=== PATIENT | male | born 1960 | race Caucasian/White ===

== ENCOUNTER 2022-04-13 06:12 | Inpatient (IN) | payer MEDICAID ==
[~2022-04-13] VITALS: Ht 177.8 cm; Wt 61.2 kg
--- NOTE | 2022-04-13 06:12 | NUR ---
Lac noted to the left eye, left hand, and back of the head. Bleeding controlled and gauze applied to the sites.
--- NOTE | 2022-04-13 06:12 | NUR ---
Patient to ER bed 07 for evaluation. Side rails up.
--- NOTE | 2022-04-13 06:12 | NUR ---
Dr. Delgadillo at bedside with patient for evaluation.
[2022-04-13] MEDS ORDERED: LORazepam 2 MG/ML VIAL ONE (06:18)
--- NOTE | 2022-04-13 06:18 | NUR ---
DR LEARY GAVE VERBAL ORDER FOR 1 ML OF LORAZEPAM/ADM IVP
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
[2022-04-13] MEDS ORDERED: BACITRACIN 1 GM OINT TP ONE (06:45)
[2022-04-13] MEDS ORDERED: LIDOCAINE 1% 10 MG/ML, 20 ML MDV INJ ONE (06:45)
[2022-04-13] MEDS ORDERED: DIPH-TET-PERTUS Vaccine 0.5 ML VIAL (ADACEL) I.M. ONE (06:45)
[2022-04-13 06:57] LABS: BASOPHILS # (AUTO) 0.1 K/uL (0.0-0.2); BASOPHILS % (AUTO) 0.6 % (0.0-2.0); HEMATOCRIT 38.6 % (36-54); HEMOGLOBIN 13.3 g/dL (14.0-18.0); LYMPHOCYTES # (AUTO) 0.6 K/uL (1.0-5.5); LYMPHOCYTES % (AUTO) 4.8 % (20.5-51.5); MEAN CORPUSCULAR HEMOGLOBIN 33 pg (27-31); MEAN CORPUSCULAR HGB CONC 34 % (32-36); MEAN CORPUSCULAR VOLUME 96 fL (79.0-98.0); MONOCYTES # (AUTO) 0.6 K/uL (0.0-1.0); MONOCYTES % (AUTO) 4.8 % (1.7-9.3); NEUTROPHILS # (AUTO) 10.8 K/uL (1.8-7.7); NEUTROPHILS % (AUTO) 89.8 % (40.0-70.0); PLATELET COUNT (AUTO) 131 K/uL (130-430); RED BLOOD CELL COUNT(AUTO) 4.02 MIL/uL (4.2-6.2); RED CELL DISTRIBUTION WIDTH 14.2 % (9.0-15.0); WHITE BLOOD COUNT (AUTO) 12.1 K/uL (4.8-10.8)
--- NOTE | 2022-04-13 07:10 | NUR ---
REPORT RECEIVED FROM SMOOTH RN FOR CONTINUING CARE
[2022-04-13] MEDS ORDERED: LORazepam 2 MG/ML VIAL IVP ONE (07:15)
[2022-04-13 07:24] LABS: ANION GAP 14 (5-15); CALCIUM 8.3 mg/dL (8.4-11.0); CHLORIDE 100 mmol/L (98-107); CREATININE 0.67 mg/dL (0.55-1.30); GLUCOSE 111 mg/dL (70-99); SODIUM SERUM 142 mmol/L (136-145); UREA NITROGEN, BLOOD 13 mg/dL (8-21)
[2022-04-13 07:28] LABS: ALANINE AMINOTRANSFERASE 43 U/L (12-78); ALBUMIN 3.5 g/dL (3.4-4.8); ALCOHOL, BLOOD 172 mg/dL (<10); AMYLASE 191 U/L (0-100); ASPARTATE AMINOTRANSFERASE 128 U/L (10-37); LIPASE 92 U/L (73-393); TOTAL BILIRUBIN 0.5 mg/dL (0.0-1.0)
--- NOTE | 2022-04-13 07:31 | NUR ---
SPOKE WITH DISPATCH AT [facility] AND INFORMATION GIVEN, THEY WILL SEND A DEPUTY TO HOSPITAL FOR PT.
[2022-04-13 07:59] LABS: GFR AFRICAN AMERICAN 154 mL/min (>90); POTASSIUM 2.6 mmol/L (3.5-5.1)
--- NOTE | 2022-04-13 08:10 | NUR ---
OFFICER KATHE HERE TO SPEAK WITH PTOdalys
--- NOTE | 2022-04-13 08:27 | NUR ---
COVID SWAB DONE AND SENT TO LAB
[2022-04-13] MEDS ORDERED: POTASSIUM CHLORIDE 20 MEQ/PKT PACKET PO ONE ×2 (08:45→14:15)
--- NOTE | 2022-04-13 09:08 | NUR ---
MEAGAN MARISCAL HERE TO SEE PT.
--- NOTE | 2022-04-13 09:52 | NUR ---
Admit bed requested Patient will be admitted to care of . Admitted to tele unit. Diagnosis Alcohol Intoxication Inpatient (Yes or No) Yes Observation (Yes or No) No Orientation concerns or request close to nursing station (Yes or No) NO Covid Status No On vent or bipap No Isolation requirements No Needs a sitter No From Home (Yes or if No enter name of facility) No- Patient is homeless Requires Dialysis (Yes or No) No Med Rec Completed (Yes of No) Yes
[2022-04-13] MEDS ORDERED: FOLIC ACID 1 MG, THIAMINE HCL 100 MG, MAGNESIUM SULFATE 1 GM, MVI 10 ML in NACL 0.9% 1,... IV ONE (10:00)
--- NOTE | 2022-04-13 10:28 | NUR ---
Medication reconciliation completed with information provided by patient. Any prior medication reconciliation on file was reviewed and corrected.
[2022-04-13] MEDS ORDERED: FOLIC ACID 1 MG, MVI 10 ML in NACL 0.9% 1,000 ML IV ONE (11:00)
[2022-04-13] MEDS ORDERED: THIAMINE HCL 100 MG, MAGNESIUM SULFATE 1 GM in NS 100 ML IV ONE (11:00)
--- NOTE | 2022-04-13 12:21 | NUR ---
Patient will be admitted to care of Dr. Watts. Admitted to tele unit. Will go to room 102B. Belongings list completed. Complete and up to date summary report printed. SBAR report to be given at bedside with opportunity for questions.
[2022-04-13 12:30] VITALS: BP_SYST 144
--- NOTE | 2022-04-13 12:30 | NUR ---
ADMISSION NOTE Received patient from ER via raya, received report from CHARTERED ACCOUNTANT. Patient admitted with diagnosis of left orbital floor fracture, ETOH abuse, hypokaleia. Patient oriented to hospital routine, call light, toileting and safety-patient verbalized understanding.
[2022-04-13 12:33] LABS: ACETONE, SERUM TRACE (NEGATIVE)
[2022-04-13 16:00] VITALS: BP_SYST 136
--- NOTE | 2022-04-13 17:40 | NUR ---
Note Assisted patient with hygiene needs with the help of Helen AVINA. Call light within reach. Safety and fall precautions in place. All needs met.
--- NOTE | 2022-04-13 18:11 | NUR ---
Note Patient is laying in bed with eyes closed. Family at bedside. Call light within reach. Safety and fall precautions in place. All needs met.
[2022-04-13] MEDS ORDERED: chlordiazePOXIDE HCL 25 MG CAPSULE PO ONE (18:30)
--- NOTE | 2022-04-13 19:00 | NUR ---
Closing Note Patient laying in bed with eyes closed. No apparent distress noted. Call light within reach. Safety and fall precautions in place. All needs met. Endorsed care to shift superintendent RN Deb.
[2022-04-13] MEDS: POTASSIUM CHLORIDE 20 MEQ/PKT PACKET PO SCH ×2 (19:07→21:22)
--- NOTE | 2022-04-13 19:30 | NUR ---
OPENING NOTES: Patient received from AM shift. Patient is AA&Ox4 able to make needs known, denies any pain or discomfort at this time. Chest rise is even and unlabored on RA. Patient has some visual impairment due to swelling of the eyelids due to trauma. BS active patient is ambulatory and continent of B&B. Safety measures are in place, patient has call light within reach. Will resume care and continue to monitor throughout the shift.
[2022-04-13 20:00] VITALS: BP_SYST 136
[2022-04-13] MEDS: chlordiazePOXIDE HCL 25 MG CAPSULE PO SCH (21:24)
[2022-04-13] MEDS: LORazepam 2 MG/ML VIAL IVP PRN (21:26)
--- NOTE | 2022-04-14 00:30 | NUR ---
PATIENT RESTING: Patient resting quietly. No acute distress noted. Vital signs within normal range. Patient received all scheduled evening medications and was administered anxiety medication as prescribed. Call light is within reach will continue to monitor.
[2022-04-14 00:39] VITALS: BP_SYST 123
[2022-04-14 05:53] LABS: BASOPHILS # (AUTO) 0.1 K/uL (0.0-0.2); EOSINOPHILS % (AUTO) 0.5 % (0.0-4.0); HEMATOCRIT 36.5 % (36-54); HEMOGLOBIN 12.6 g/dL (14.0-18.0); LYMPHOCYTES # (AUTO) 1.2 K/uL (1.0-5.5); LYMPHOCYTES % (AUTO) 18.4 % (20.5-51.5); MEAN CORPUSCULAR HEMOGLOBIN 33 pg (27-31); MEAN CORPUSCULAR HGB CONC 35 % (32-36); MEAN CORPUSCULAR VOLUME 96 fL (79.0-98.0); MONOCYTES % (AUTO) 14.4 % (1.7-9.3); NEUTROPHILS # (AUTO) 4.3 K/uL (1.8-7.7); NEUTROPHILS % (AUTO) 65.7 % (40.0-70.0); PLATELET COUNT (AUTO) 133 K/uL (130-430); RED BLOOD CELL COUNT(AUTO) 3.82 MIL/uL (4.2-6.2); RED CELL DISTRIBUTION WIDTH 13.6 % (9.0-15.0); WHITE BLOOD COUNT (AUTO) 6.6 K/uL (4.8-10.8)
--- NOTE | 2022-04-14 06:08 | NUR ---
I PAGED DR. DUARTE I SPOKE TO TRICE
[2022-04-14] MEDS: LORazepam 2 MG/ML VIAL IVP PRN (06:13)
[2022-04-14 06:25] LABS: ALBUMIN 3.4 g/dL (3.4-4.8); CALCIUM 7.8 mg/dL (8.4-11.0); CREATININE 0.54 mg/dL (0.55-1.30); TOTAL BILIRUBIN 1.8 mg/dL (0.0-1.0)
--- NOTE | 2022-04-14 07:20 | NUR ---
Opening Notes Patient is sitting up in bed awake. A/O x2. Patient is confused, he believes he is at home. Re oriented patient to place and time. Vitals as charted. Call light within reach. Safety and fall precautions in place. All needs met.
--- NOTE | 2022-04-14 07:23 | NUR ---
CLOSING NOTES: Patient is in bed resting. Patient had 1 episode of loose stool and had some accidental incontinence on they way to restroom. Patient also expressed increased anxiety and craving to smoke cigarettes, MD notified and and order was obtain for nicotine 21 daily patch for smoking cessation. Patient is able to verbalize needs and PRN Lorazepam was administered as ordered to help with the anxiety, denies any other pain or distress at this time. All current shift needs have been met at this time, safety protocols are in place. Will differ further care to AM shift for continuity of care.
[2022-04-14 08:42] LABS: POTASSIUM 2.9 mmol/L (3.5-5.1)
--- NOTE | 2022-04-14 08:51 | NUR ---
Critical Lab Critical Lab received from Leanne philip 2.9. Reported to Dr. Watts [id number].
[2022-04-14] MEDS: chlordiazePOXIDE HCL 25 MG CAPSULE PO SCH ×4 (09:52→21:25)
[2022-04-14] MEDS: POTASSIUM CHLORIDE 20 MEQ/PKT PACKET PO SCH ×4 (09:53→21:25)
[2022-04-14] MEDS: NICOTINE 21 MG/24 HR PATCH.TD24 TD SCH (09:53)
[2022-04-14] MEDS: FOLIC ACID 1 MG TABLET PO SCH (09:53)
[2022-04-14] MEDS: THIAMINE HCL 100 MG TABLET PO SCH (09:53)
[2022-04-14] MEDS ORDERED: POTASSIUM CHLORIDE 20 MEQ TAB.PRT.SR PO ONE (10:30)
[2022-04-14 12:34] VITALS: BP_SYST 147
--- NOTE | 2022-04-14 13:00 | NUR ---
NEW IV INSERTION Patient ripped off IV. Inserted new IV LFA 20g. Flushes well, blood return present, IV patent.
[2022-04-14 16:48] VITALS: BP_SYST 140
--- NOTE | 2022-04-14 17:09 | NUR ---
P.T. NOTES P.T. EVAL COMPLETED; REFER TO EVAL FOR DETAILS.
--- NOTE | 2022-04-14 18:57 | NUR ---
Closing Note Patient laying in bed. A/O x2. Patient becomes confused at times, reoriented to place and time. Call light within reach. Safety and fall precautions in place. All needs met. Will endorse care to hourly shift RN.
--- NOTE | 2022-04-14 19:40 | NUR ---
PM ASSESSMENT; -Pt is a/ox2, episode of confusion noted. Pt is laying in bed comfortably. Son is at bedside. IV site left f/a patent no s/s any infiltration drsg cdi. Discussed poc,all safety measures, not to get out of bed, to use call light whenever needs assistance or experiencing any distress, pt and son verbalized understanding. Pt is able to use call light for assistance. All safety measures in place. Bed alarmed, side rails x3, call light w/in reach. Cont to monitor pt. Addendum: 04/14/22 at 2042 by [employer] special education para professional LATE ENTRY-ADDITIONAL NOTES-- SUTURE DRY AND WELL APPROXIMATE,NO DRAINAGE OF LEFT HAND, NIK EYES SWOLLEN AND ECCHYMOSIS, LEFT FACIAL AROUND TEMPORAL SITE DRY SCAB, AND LEFT F/A SKIN TEAR NOTED.
--- NOTE | 2022-04-14 22:00 | NUR ---
ROUNDS; -Pt is incontinent of loose green stool, provided perineal care and cleaned pt and changed linen,gown, sheet. Now, pt is cleaned and dry. Reinstructed and oriented pt to use call light whenever needs assistance, pt verbalized understanding. Fall precaution in place. All safety measures in place. Bed alarmed, side rails x3, call light w/in reach. Cont to monitor pt.
[2022-04-15 00:31] VITALS: BP_SYST 110
--- NOTE | 2022-04-15 00:31 | NUR ---
ROUNDS; -Pt is asleep. NO s/s any pain,sob,or any acute distress noted. Pt's condition stable. Fall precaution in place. All safety measures in place. Bed alarmed, side rails x3, call light w/in reach. Cont to monitor pt.
--- NOTE | 2022-04-15 02:00 | NUR ---
ROUNDS; -Pt is asleep. NO s/s any pain,sob,or any acute distress noted. Fall precaution in place. All safety measures in place. Bed alarmed, side rails x3, call light w/in reach. Cont to monitor pt.
--- NOTE | 2022-04-15 03:50 | NUR ---
ROUNDS; -Pt is still asleep. NO s/s any pain,sob,or any acute distress noted. Fall precaution in place. All safety measures in place. Bed alarmed, side rails x3, call light w/in reach. Cont to monitor pt.
--- NOTE | 2022-04-15 05:46 | NUR ---
ROUNDS; -Pt is resting in bed. Pt is cleaned and dry on perineal area. Gave warm blanket bc pt feels cold. Fall precaution in place. All safety measures in place. Bed alarmed, side rails x3, call light w/in reach. Cont to monitor pt.
[2022-04-15 06:22] LABS: BASOPHILS # (AUTO) 0.1 K/uL (0.0-0.2); BASOPHILS % (AUTO) 1.1 % (0.0-2.0); EOSINOPHILS # (AUTO) 0.1 K/uL (0.0-0.4); EOSINOPHILS % (AUTO) 2.1 % (0.0-4.0); HEMATOCRIT 35.5 % (36-54); HEMOGLOBIN 12.3 g/dL (14.0-18.0); LYMPHOCYTES # (AUTO) 1.8 K/uL (1.0-5.5); LYMPHOCYTES % (AUTO) 28.6 % (20.5-51.5); MEAN CORPUSCULAR HEMOGLOBIN 34 pg (27-31); MEAN CORPUSCULAR HGB CONC 35 % (32-36); MEAN CORPUSCULAR VOLUME 96 fL (79.0-98.0); MONOCYTES # (AUTO) 0.8 K/uL (0.0-1.0); NEUTROPHILS # (AUTO) 3.5 K/uL (1.8-7.7); NEUTROPHILS % (AUTO) 55.2 % (40.0-70.0); PLATELET COUNT (AUTO) 149 K/uL (130-430); RED BLOOD CELL COUNT(AUTO) 3.69 MIL/uL (4.2-6.2); RED CELL DISTRIBUTION WIDTH 13.5 % (9.0-15.0); WHITE BLOOD COUNT (AUTO) 6.4 K/uL (4.8-10.8)
[2022-04-15 06:31] LABS: ALBUMIN 3.2 g/dL (3.4-4.8); CALCIUM 7.9 mg/dL (8.4-11.0); CREATININE 0.62 mg/dL (0.55-1.30); POTASSIUM 3.6 mmol/L (3.5-5.1); TOTAL BILIRUBIN 1.8 mg/dL (0.0-1.0)
--- NOTE | 2022-04-15 06:31 | NUR ---
CLOSING NOTES; -Pt is laying in bed comfortably. No s/s any acute distress noted. IV site left f/a patent no s/s any infiltration drsg cdi. All safety measures in place. Bed alarmed, side rails x3, call light w/in reach. Will endorse to next nurse to cont care.
--- NOTE | 2022-04-15 07:30 | NUR ---
RN OPENING NOTE REPORT WAS ENDORSED BY NIGHT NURSE. PATIENT IS AWAKE AND ALERT SITTING UP IN BED EATING HIS BREAKFAST. PATIENT EDUCATED PEST CONTROL APPLICATOR LIGHT FOR ASSISTANCE. CALL LIGHT IS WITH HIM. PATIENT HAS NO COMPLAINTS AT THIS TIME.
[2022-04-15 08:00] VITALS: BP_SYST 109
[2022-04-15] MEDS: chlordiazePOXIDE HCL 25 MG CAPSULE PO SCH ×4 (08:22→21:19)
[2022-04-15] MEDS: THIAMINE HCL 100 MG TABLET PO SCH (08:22)
[2022-04-15] MEDS: FOLIC ACID 1 MG TABLET PO SCH (08:23)
[2022-04-15] MEDS: NICOTINE 21 MG/24 HR PATCH.TD24 TD SCH (08:23)
[2022-04-15] MEDS: POTASSIUM CHLORIDE 20 MEQ/PKT PACKET PO SCH ×2 (08:23→21:19)
--- NOTE | 2022-04-15 08:24 | NUR ---
medication patients scheduled medication given per order. patient is awake and alert sitting up in bed. no complaints at this time. educated stereo equipment salesperson light for assistance. no other needs at this time.
--- NOTE | 2022-04-15 10:30 | NUR ---
RN roundfiliberto patient is awake and alert got out of his bed, and walked to bathroom bed alarm did go off, COIL FORMER answered alarm helped him to bathroom and back to bed, patients gait is weak.educated patient to use call light for assistance. call light is with him. no other needs at this time.
[2022-04-15 12:00] VITALS: BP_SYST 143
--- NOTE | 2022-04-15 13:07 | NUR ---
RN ROUNDING PATIENT IS SITTING IN BED, EATING HIS LUNCH, NO COMPLAINTS AT THIS TIME. NO SIGNS OF ANY DISTRESS, BED ALARM IS ON, EDUCATED TO NOT GET OUT OF BED TO CALL US FIRST CALL LIGHT IS WITH HIM.
--- NOTE | 2022-04-15 14:30 | NUR ---
Wound Evaluation: Late note for 04/15/2022 at 1430. Wound Consult ordered for Low Jermaine Score. Patient evaluated for a low Jermaine score of 15. Patient was awake, alert, confused, and received in a Boo Bed with an Isoflex CRISTEL mattress. Patient needs assist to turn in bed. Skin assessment: 1. Left lateral wrist: Laceration, present on admission. Laceration site is approximated with sutures. No odor, no drainage. Laceration measures 3.6 cm x 3.5 cm. Recommend: Cover site with foam dressing for protection. Change dressing daily, and as needed for dressing soiling or dislodgment. 2. Left lateral forearm: Skin tear, present on admission. Skin tear has 85% pink tissue, 15% yellow tissue. No odor, scant purulent drainage. Periwound intact. Skin tear measures 1.5 cm x 1.4 cm. Recommend: Cleanse skin tear with normal saline. Apply Sureprep to perimeter of skin tear. Apply hydrogel to skin tear. Cover with nonadhesive foam dressing. Wrap with Shaheen wrap. Perform site care daily, and as needed for dressing soiling or dislodgment. Recommend encourage and assist patient as needed with repositioning every 2 hours with pillow support. Elevate, off-load and float bilateral heels with pillows. Offload pressure areas with pillows for pressure re-distribution. Perform skin care and monitor skin integrity Q shift. Use moisture barrier cream on moisture susceptible areas QID and PRN for soiling. Place patient on a low air-loss mattress.
--- NOTE | 2022-04-15 15:30 | NUR ---
wound care done per order. patient is awake and alert sitting in bed wound care was done as ordered by wound care nurse. patient has call light with him educated to use call light for assistance.
--- NOTE | 2022-04-15 15:37 | NUR ---
Discharge Planning: DCP faxed pt referral to [facility]#[phone], AYAN to follow up Addendum: 04/15/22 at 1608 by Brenna PATEL AYAN was made aware [facility] does not manage patient. DCP faxed to Peter Leary#[phone] [facility] to follow up
--- NOTE | 2022-04-15 15:42 | NUR ---
CM: Per Clare/Brie /Bradley MG: the pt insurance is registered with [facility] and is out of [facility]. Advised CM/DCP to contact the main insurance for authorization need.
[2022-04-15 16:20] VITALS: BP_SYST 102
--- NOTE | 2022-04-15 18:49 | NUR ---
RN CLOSING NOTE PATIENT IS EATING IN BED SITTING IN BED. FAMILY IS AT BED SIDE. CALL LIGHT IS WITH HIM EDUCATED TO USE FOR ASSISTANCE. PATIENT SHOWS NO SIGNS OF ANY DISTRESS, BREATHING IS EQUAL AND NON LABORED.
--- NOTE | 2022-04-15 19:30 | NUR ---
RECEIVED REPORT ON PT FROM OFFGOING RN, ASSUMED CARE AND STARTED ASSESSMENT.
[2022-04-16 00:41] VITALS: BP_SYST 121
--- NOTE | 2022-04-16 07:44 | NUR ---
REPORT GIVEN TO BERNADETTE HAYES, AND CARE WAS TURNED OVER TO HER.
[2022-04-16 08:00] VITALS: BP_SYST 107
--- NOTE | 2022-04-16 08:00 | NUR ---
OPENING NOTES: PATIENT EATING BREAKFAST. BREATHING EVEN AND NON LABORED TO RA. DENIES ANY DISCOMFORT AT THIS TIME. FALL AND SAFETY MEASURES REINFORCED. CALL LIGHT WITHIN REACH.
[2022-04-16] MEDS: NICOTINE 21 MG/24 HR PATCH.TD24 TD SCH (09:17)
[2022-04-16] MEDS: THIAMINE HCL 100 MG TABLET PO SCH (09:17)
[2022-04-16] MEDS: POTASSIUM CHLORIDE 20 MEQ/PKT PACKET PO SCH ×2 (09:17→21:24)
[2022-04-16] MEDS: FOLIC ACID 1 MG TABLET PO SCH (09:17)
[2022-04-16] MEDS: chlordiazePOXIDE HCL 25 MG CAPSULE PO SCH ×4 (09:18→21:23)
[2022-04-16 12:00] VITALS: BP_SYST 118
--- NOTE | 2022-04-16 12:00 | NUR ---
Note: Patient resting in bed, ambulated with PT, ambulatory with BRP, safety precaution observed, call light within reach. Will continue to monitor throughout shift.
[2022-04-16 17:00] VITALS: BP_SYST 110
--- NOTE | 2022-04-16 18:49 | NUR ---
CLOSING NOTES; patient alert, oriented, verbally responsive and able to make needs known. Patient needs minimum assist with ambulation. Safety precaution observed, bed alarm on, side rails up for safety, call light within reach. IV patent, kept clean and dry, able to reposition self, all needs met throughout shift. Will continue to monitor until material handler 2nd shift RN.
[2022-04-16 20:00] VITALS: BP_SYST 91
[2022-04-17] VITALS: BP_SYST 104
[2022-04-17 04:00] VITALS: BP_SYST 105
--- NOTE | 2022-04-17 07:30 | NUR ---
OPENING NOTES: Received patient in bed, alert, oriented x 4, verbally responsive and able to make his needs known. Safety precaution observed, bed alarm on, side rails up, call light within reach, IV patent. Will continue to monitor.
[2022-04-17 07:50] LABS: BASOPHILS % (AUTO) 0.5 % (0.0-2.0); EOSINOPHILS # (AUTO) 0.2 K/uL (0.0-0.4); EOSINOPHILS % (AUTO) 2.5 % (0.0-4.0); HEMATOCRIT 31.8 % (36-54); HEMOGLOBIN 10.9 g/dL (14.0-18.0); LYMPHOCYTES # (AUTO) 1.6 K/uL (1.0-5.5); LYMPHOCYTES % (AUTO) 17.8 % (20.5-51.5); MEAN CORPUSCULAR HEMOGLOBIN 33 pg (27-31); MEAN CORPUSCULAR HGB CONC 34 % (32-36); MEAN CORPUSCULAR VOLUME 97 fL (79.0-98.0); MONOCYTES # (AUTO) 0.9 K/uL (0.0-1.0); MONOCYTES % (AUTO) 9.9 % (1.7-9.3); NEUTROPHILS # (AUTO) 6.1 K/uL (1.8-7.7); NEUTROPHILS % (AUTO) 69.3 % (40.0-70.0); PLATELET COUNT (AUTO) 176 K/uL (130-430); RED BLOOD CELL COUNT(AUTO) 3.28 MIL/uL (4.2-6.2); RED CELL DISTRIBUTION WIDTH 13.3 % (9.0-15.0); WHITE BLOOD COUNT (AUTO) 8.8 K/uL (4.8-10.8)
[2022-04-17 08:00] VITALS: BP_SYST 100
[2022-04-17 08:04] LABS: ALBUMIN 2.9 g/dL (3.4-4.8); CALCIUM 8.1 mg/dL (8.4-11.0); CREATININE 0.66 mg/dL (0.55-1.30); POTASSIUM 3.8 mmol/L (3.5-5.1); TOTAL BILIRUBIN 0.8 mg/dL (0.0-1.0)
[2022-04-17] MEDS: POTASSIUM CHLORIDE 20 MEQ/PKT PACKET PO SCH ×2 (08:33→21:13)
[2022-04-17] MEDS: NICOTINE 21 MG/24 HR PATCH.TD24 TD SCH (08:33)
[2022-04-17] MEDS: chlordiazePOXIDE HCL 25 MG CAPSULE PO SCH ×2 (08:33→21:16)
[2022-04-17] MEDS: FOLIC ACID 1 MG TABLET PO SCH (08:33)
[2022-04-17] MEDS: THIAMINE HCL 100 MG TABLET PO SCH (08:33)
[2022-04-17 11:46] VITALS: BP_SYST 99
[2022-04-17] MEDS ORDERED: MAGNESIUM SULFATE 50 ML IV ONE (12:15)
--- NOTE | 2022-04-17 14:00 | NUR ---
Notes: Provided incontinence care, kept patient clean and dry, safety precaution observed, bed alarm on, side rails up for safety, call light within reach.
[2022-04-17 16:00] VITALS: BP_SYST 102
--- NOTE | 2022-04-17 18:32 | NUR ---
CLOSING NOTES: Patient alert, oriented, verbally responsive. Patient needs minimal assist with transfer and ambulation, safety precaution observed, side rails up, bed alarm on, call light within reach. Patient kept clean and dry, repositioned for comfort. IV patent, no s/s of acute distress noted, needs met throughout shift, will continue to monitor until hooker off RN.
--- NOTE | 2022-04-17 19:40 | NUR ---
INITIAL NOTE AT INITIAL ASSESSMENT, PATIENT IS RESTING IN BED, STABLE, NO SIGNS OF RESPIRATORY DISTRESS. PATIENT VERBALIZES NO PAIN. PLAN OF CARE FOR THE EVENING COMMUNICATED WITH THE PATIENT. CALL LIGHT TEACH BACK IS SUCCESSFUL. BED IS LOCKED, ALARMED, AND AT THE LOWEST LEVEL. FALL AND SAFETY PRECAUTIONS WILL BE TAKEN THROUGHOUT THE NIGHT.
[2022-04-17] MEDS: MAGNESIUM OXIDE 400 MG TABLET PO SCH (21:16)
[2022-04-18] VITALS: BP_SYST 104
--- NOTE | 2022-04-18 06:45 | NUR ---
CLOSING NOTE PATIENT SLEPT WELL THROUGHOUT THE NIGHT, HE HAS MORE STRENGTH NOW AND IS WALKING AROUND WITHOUT ASSISTANCE NEEDED. AT THIS TIME HE IS RESTING IN BED, STABLE. SHE REPORTED NO SHORTNESS OF BREATH OR PAIN DURING THE NIGHT. WILL CONTINUE TO MONITOR UNTIL SHIFT REPORT IS GIVEN AT BEDSIDE TO AM NURSE.
[2022-04-18 08:00] VITALS: BP_SYST 113
--- NOTE | 2022-04-18 08:00 | NUR ---
INITIAL NOTES PATIENT IN BED, RESTING. DOES NOT COMPLAIN OF PAIN. NO DISTRESS NOTED. PATIENT IS AOX4. VITAL SIGNS OBTAINED, WITHIN NORMAL RANGE . SPO2 IS AT 98% ON ROOM AIR. NO S/S OF RESPIRATORY DISTRESS. DENIES ANY SOB. BREAKFAST ON TABLE, PATIENT BEGINNING TO EAT. SAFETY PRECAUTIONS IN PLACE AND CALL LIGHT WITHIN REACH.
[2022-04-18] MEDS: THIAMINE HCL 100 MG TABLET PO SCH (09:36)
[2022-04-18] MEDS: NICOTINE 21 MG/24 HR PATCH.TD24 TD SCH (09:36)
[2022-04-18] MEDS: POTASSIUM CHLORIDE 20 MEQ/PKT PACKET PO SCH (09:36)
[2022-04-18] MEDS: chlordiazePOXIDE HCL 25 MG CAPSULE PO SCH (09:36)
[2022-04-18] MEDS: MAGNESIUM OXIDE 400 MG TABLET PO SCH (09:36)
[2022-04-18] MEDS: FOLIC ACID 1 MG TABLET PO SCH (09:36)
[2022-04-18] MEDS ORDERED: FOLI-43 PO (11:21)
[2022-04-18] MEDS ORDERED: Thiamine Hcl PO (11:21)
[2022-04-18] MEDS ORDERED: MAGN400T10 PO (11:21)
[2022-04-18 11:29] VITALS: BP_SYST 121
--- NOTE | 2022-04-18 12:00 | NUR ---
NOTES PATIENT EATING LUNCH. NO COMPLAINTS OF PAIN. NO DISTRESS NOTED. SAFETY PRECAUTIONS IN PLACE AND CALL LIGHT WITHIN REACH.
[2022-04-18 12:29] VITALS: BP_SYST 116
--- NOTE | 2022-04-18 13:55 | NUR ---
D/C Patient Patient given medication reconciliation form and D/C instructions. Exit Care provided. Patient verbalized understanding. Ambulatory with walker. Patient in stable condition, ID band removed. IV catheter removed, intact and dressing applied, no active bleeding. Rx of given. Patient denies any pain or SOB. Denies nausea and headache. Patient educated on pain management. All belongings sent with patient.
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
--- NOTE | 2022-04-19 07:29 | NUR ---
PHYSICAL THERAPY CO-SIGN The Physical Therapy Progress Notes documented by Intake Nurse have been reviewed. Reviewed/Co-Signed by: Ryder Glez Documentation Done by: WINNIE SHORT PTA Addendum: 04/19/22 at 0730 by Ryder Glez PT Amended: Links added.
--- NOTE | 2022-04-19 07:29 | NUR ---
PHYSICAL THERAPY CO-SIGN The Physical Therapy Progress Notes documented by C D Area Supervisor have been reviewed. Reviewed/Co-Signed by: Ryder Glez Documentation Done by: LINDA SHORT PTA Addendum: 04/19/22 at 0730 by Ryder Glez PT Amended: Links added.
== END 2022-04-18 13:52 | disposition home or self-care (01) | DRG 82 ==
LOC: SED 06:12 → STU 09:47
PROVIDERS: ADMIT Internal Medicine; ATTEND Internal Medicine
DX: S02.32XA Fracture of orbital floor, left side, initial encounter for closed fracture (principal); R65.11 Systemic inflammatory response syndrome (SIRS) of non-infectious origin with acute organ dysfunction; E87.2 Acidosis; E44.1 Mild protein-calorie malnutrition; G62.1 Alcoholic polyneuropathy; E87.6 Hypokalemia; F10.129 Alcohol abuse with intoxication, unspecified; X58.XXXA Exposure to other specified factors, initial encounter; Y90.9 Presence of alcohol in blood, level not specified; F17.200 Nicotine dependence, unspecified, uncomplicated; Z20.822 Contact with and (suspected) exposure to COVID-19; Z91.013 Allergy to seafood; Y93.89 Activity, other specified; Y92.89 Other specified places as the place of occurrence of the external cause; Y99.8 Other external cause status; Z68.1 Body mass index [BMI] 19.9 or less, adult
CPT/HCPCS: 36415; 70450-TC; 70486-TC; 71045; 72125-TC; 76376; 80053; 82009; 82140; 82150; 83605; 83690; 83735; 85025; 90715; 96365; 96366; 96375; 97110-GP; 97112-GP; 97116-GP; 97530-GP; 99285; G0378; G0482; J2060; J3411; J3475; J3490; J7030